=== PATIENT | male | born 1950 | race African-American/Black ===

== ENCOUNTER 2022-12-01 11:52 | Day surgery (SDC) | payer OTHER ==
[2022-12-01] MEDS ORDERED: LEUPROLIDE ACETATE (ELIGARD) 22.5 MG SYRINGE SQ ONE (12:15)
[2022-12-01 17:33] VITALS: BP 127/73; PULSE 75; RESP 18; TEMP 98.1
== END 2022-12-01 13:00 | disposition home or self-care (01) ==
LOC: JONCCHEMO 11:52
PROVIDERS: ATTEND Internal Medicine Hematology & Oncology
DX: Z51.11 Encounter for antineoplastic chemotherapy (principal); C61 Malignant neoplasm of prostate
CPT/HCPCS: 96402; J9217

== ENCOUNTER 2023-03-02 14:18 | Day surgery (SDC) | payer OTHER ==
[~2023-03-02 14:18] MED LIST: LEUPROLIDE ACETATE (ELIGARD) 22.5 MG SYRINGE SQ ONE
[2023-03-02 16:42] VITALS: BP 154/78; PULSE 70; RESP 20; TEMP 97.9
== END 2023-03-02 15:00 | disposition home or self-care (01) ==
LOC: JONCCHEMO 14:18 → J7W 14:19 → JONCCHEMO 15:00
PROVIDERS: ATTEND Internal Medicine Hematology & Oncology
DX: C61 Malignant neoplasm of prostate (principal); Z76.89 Persons encountering health services in other specified circumstances
CPT/HCPCS: J9217